=== PATIENT | female | born 1950 | race Caucasian/White ===

== ENCOUNTER 2020-03-20 07:59 | Day surgery (SDC) | payer OTHER ==
[~2020-03-20 07:59] MED LIST: Lactated Ringers 1,000 ML IV SCH; Sodium Chloride 0.9% 10 ML Syringe FLUSH PRN
[2020-03-20] MEDS ORDERED: Midazolam 1 MG/ML 2 ML SDV ONE ×2 (08:36→09:09)
[2020-03-20] MEDS ORDERED: Propofol 200 MG/20 ML SDV ONE ×3 (08:37→09:59)
--- NOTE | 2020-03-20 09:17 | PCM.PN ---
- General Info Date of Service: 03/20/20 - Review of Systems HEENT: Denies: Visual Changes Systems Review Comment:: 69-year-old female with family history of rectal cancer here for high risk screening colonoscopy. She is medically stable to proceed today. Her recent history and physical is reviewed and no significant changes are noted. I have discussed the proposed colonoscopy with the patient. Risks such as but not limited to bleeding and GI injury reviewed. She agrees to proceed. - Patient Data Vitals - Most Recent: Last Vital Signs Temp 97.4 F 03/20/20 08:43 Pulse 85 03/20/20 08:43 Resp 18 03/20/20 08:43 BP 137/78 03/20/20 08:43 Pulse Ox 94 L 03/20/20 08:43 Weight - Most Recent: 98.43 kg Med Orders - Current: Current Medications Lactated Ringer's (Ringers, Lactated) 1,000 mls @ 125 mls/hr IV ASDIRECTED CHANTE Last Admin: 03/20/20 08:42 Dose: 125 mls/hr Documented by: Sodium Chloride (Saline Flush) 10 ml FLUSH ASDIRECTED PRN PRN Reason: Keep Vein Open Discontinued Medications Midazolam HCl (Versed 1 Mg/Ml) Confirm Administered Dose 2 mg .ROUTE .STK-MED ONE Stop: 03/20/20 08:37 Propofol (Diprivan 20 Ml) Confirm Administered Dose 200 mg .ROUTE .STK-MED ONE Stop: 03/20/20 08:38 Sepsis Event Note - Focused Exam Vital Signs: Vital Signs Temp Pulse Resp BP Pulse Ox 03/20/20 08:43 97.4 F 85 18 137/78 94 L - Problem List Review Problem List Initiated/Reviewed/Updated: Yes - Assessment Assessment:: Family history of colon cancer - Plan Plan:: Colonoscopy
--- NOTE | 2020-03-20 09:56 | PCM.OPNOTE ---
- General Post-Op/Procedure Note Date of Surgery/Procedure: 03/20/20 Operative Procedure(s): Colonoscopy Findings: Extensive sigmoid diverticulosis Moderate sized external hemorrhoids Pre Op Diagnosis: Family history of colon cancer Post-Op Diagnosis: Sigmoid diverticulosis. Hemorrhoids Anesthesia Technique: MAC Primary Surgeon: Buck Fernández Pathology: none EBL in mLs: 0 Complications: None Condition: Good
--- NOTE | 2020-03-20 11:29 | OR ---
Date of Procedure: 03/20/2020 PREOPERATIVE DIAGNOSIS: Family history of colon cancer. POSTOPERATIVE DIAGNOSIS: Sigmoid diverticulosis and hemorrhoids. OPERATIONS PERFORMED: Colonoscopy. INDICATIONS FOR SURGERY: This 69-year-old female has a family history of colon cancer in her mother. She comes today for high-risk screening colonoscopy. FINDINGS: No polyps are seen on today's exam. The patient does have extensive sigmoid diverticulosis with multiple large diverticula and some angulation. The area does not appear to be acutely inflamed, or otherwise, complicated. The patient also has some moderate-sized external hemorrhoids, which also did not appear to be acutely inflamed. The remainder of the colon appears normal. DESCRIPTION OF PROCEDURE: The patient was taken to the operating room. She was given intravenous sedation and with her in the left lateral decubitus position, a digital rectal exam was performed showing no rectal masses. The Olympus colonoscope was inserted into the rectum. Retroflexed examination of the rectal canal was performed. The scope was then carefully advanced under direct visualization through the entire length of the colon until the cecum was reached. Cecal acquisition was confirmed by noting the normal internal cecal anatomy including the ileocecal valve. The light was also noted to transilluminate the abdominal wall in the right lower quadrant. There was some looping of the colon and hand pressure was required to assist in reaching the cecum, but it was able to be cannulated and reviewed. After examining the cecum, the scope was slowly withdrawn sequentially re-examining the colonic segments until the entire colon and rectum had been fully examined. The scope was removed and the patient was taken from the operating room in satisfactory condition. ESTIMATED BLOOD LOSS: Zero. COMPLICATIONS: None. PROGNOSIS: Good. ANNABELLA Fernández MD /[id number]
== END 2020-03-20 10:55 | disposition home or self-care (01) ==
LOC: LL.SDS 07:59
PROVIDERS: ATTEND Surgery
DX: Z12.11 Encounter for screening for malignant neoplasm of colon (principal); K57.30 Diverticulosis of large intestine without perforation or abscess without bleeding; K64.4 Residual hemorrhoidal skin tags; I10 Essential (primary) hypertension; E03.9 Hypothyroidism, unspecified; E78.5 Hyperlipidemia, unspecified; K58.9 Irritable bowel syndrome, unspecified; G62.9 Polyneuropathy, unspecified; G89.29 Other chronic pain; M79.605 Pain in left leg; F34.1 Dysthymic disorder; Z80.0 Family history of malignant neoplasm of digestive organs; Z79.899 Other long term (current) drug therapy
CPT/HCPCS: 45378; J2250; J2704; J7120

== ENCOUNTER 2020-06-26 10:48 | Day surgery (SDC) | payer OTHER ==
[2020-06-26] MEDS ORDERED: Propofol 200 MG/20 ML SDV ONE ×2 (11:59→12:02)
[2020-06-26] MEDS ORDERED: Midazolam 1 MG/ML 2 ML SDV ONE ×2 (11:59→12:02)
[2020-06-26] MEDS ORDERED: Ketamine 500 mg/10 ML MDV ONE ×2 (11:59→12:02)
[2020-06-26] MEDS ORDERED: Glycopyrrolate 0.2 MG/ML SDV ONE (12:02)
--- NOTE | 2020-06-26 12:06 | PCM.PN ---
- General Info Date of Service: 06/26/20 - Review of Systems Systems Review Comment:: 70-year-old female referred for EGD. She has a history of dysphagia with a choking sensation in her throat. Patient is medically stable to proceed today. Her recent history and physical is reviewed and no significant changes are noted. I have discussed the proposed upper endoscopy with the patient. She agrees to proceed excepting risks. - Patient Data Vitals - Most Recent: Last Vital Signs Temp 97.9 F 06/26/20 11:02 Pulse 82 06/26/20 11:02 Resp 18 06/26/20 11:02 BP 138/81 06/26/20 11:02 Pulse Ox 96 06/26/20 11:02 Weight - Most Recent: 99.337 kg Med Orders - Current: Current Medications Lactated Ringer's (Ringers, Lactated) 1,000 mls @ 125 mls/hr IV ASDIRECTED CHANTE Last Admin: 06/26/20 11:09 Dose: 125 mls/hr Documented by: Sodium Chloride (Saline Flush) 10 ml FLUSH ASDIRECTED PRN PRN Reason: Keep Vein Open Discontinued Medications Ketamine HCl (Ketalar) Confirm Administered Dose 500 mg .ROUTE .STK-MED ONE Stop: 06/26/20 12:00 Midazolam HCl (Versed 1 Mg/Ml) Confirm Administered Dose 2 mg .ROUTE .STK-MED ONE Stop: 06/26/20 12:00 Propofol (Diprivan 20 Ml) Confirm Administered Dose 200 mg .ROUTE .STK-MED ONE Stop: 06/26/20 12:00 Sepsis Event Note - Focused Exam Vital Signs: Vital Signs Temp Pulse Resp BP Pulse Ox 06/26/20 11:02 97.9 F 82 18 138/81 96 - Problem List Review Problem List Initiated/Reviewed/Updated: Yes - Assessment Assessment:: Dysphagia - Plan Plan:: EGD
--- NOTE | 2020-06-26 12:47 | PCM.OPNOTE ---
- General Post-Op/Procedure Note Date of Surgery/Procedure: 06/26/20 Operative Procedure(s): EGD with balloon esophageal dilation and biopsy Findings: Moderate esophageal stricture at GE junction Small hiatal hernia Mild inflammation in the antrum Pre Op Diagnosis: Dysphagia Post-Op Diagnosis: Esophageal stricture with hiatal hernia. Gastritis Anesthesia Technique: MAC Primary Surgeon: Buck Fernández Pathology: Biopsies of gastric antrum GE junction and esophagus EBL in mLs: 3 Complications: None Condition: Good
--- NOTE | 2020-06-26 13:43 | OR ---
Date of Procedure: 06/26/2020 PREOPERATIVE DIAGNOSIS: Dysphagia. POSTOPERATIVE DIAGNOSES: Distal esophageal stricture, hiatal hernia, and gastritis. OPERATION PERFORMED: Esophagogastroduodenoscopy with biopsy and balloon esophageal dilation. INDICATIONS FOR SURGERY: This 70-year-old female has noticed some difficulty with swallowing, even having to vomit up food boluses occasionally because they become lodged. FINDINGS: At the GE junction approximately 37 cm from the incisors, the patient has a moderate single esophageal stricture, this is a benign-appearing stricture without any evidence of extrinsic or intrinsic mass. The lining of the esophagus appears somewhat inflamed and possibly even has some slight whitish discoloration in this distal aspect. There is also a small hiatal hernia of approximately 2 cm in length. There is a mild degree of inflammation in the antrum near the pylorus with a mild degree of hyperemia. On examination of the patient's throat, I do not see any evidence of intrinsic or extrinsic mass, or any narrowing through the oropharynx. The cricopharyngeus distends normally, and I did not see any indication of a diverticulum. DESCRIPTION OF PROCEDURE: The patient was taken to the operating room. She was given intravenous sedation, and with her in the left lateral decubitus position, the Olympus gastroscope was advanced into the oral cavity through a mouth guard. Carefully under direct visualization, the scope was advanced through the oropharynx, through the cricopharyngeus, and into the esophagus. Examination did not show any visible abnormalities through this area either on insertion or withdrawal of the scope. The scope was then carefully advanced down through the esophagus, stomach, and into the duodenum, where examination to the third portion was performed. After examining the duodenum, which appeared normal, the scope was withdrawn back into the stomach where full examination including retroflexed examination of the fundus was performed. Biopsies of the antrum were taken to rule out H. pylori. The GE junction was carefully examined, and with the patient's symptoms and the moderate amount of narrowing seen, balloon dilation was performed. The 15/16.5/18 balloon was selected and the stricture was progressively dilated to the full 18 mm equivalent to approximately 54- [place]. There was moderate amount of mucosal disruption and improvement in the stricture with this procedure. Inspection of the dilated area did not show any evidence of esophageal injury other than the stricture dilation. Biopsies were then taken of the GE junction and also taken of the distal esophagus. The scope was then removed and the patient was awakened and taken from the operating room in satisfactory condition. ESTIMATED BLOOD LOSS: 3 mL. COMPLICATIONS: None. PROGNOSIS: Good. ANNABELLA Fernández MD /[id number]
== END 2020-06-26 14:02 | disposition home or self-care (01) ==
LOC: LL.SDS 10:48
PROVIDERS: ATTEND Surgery
DX: K22.2 Esophageal obstruction (principal); K44.9 Diaphragmatic hernia without obstruction or gangrene; K29.50 Unspecified chronic gastritis without bleeding; K31.89 Other diseases of stomach and duodenum; R23.4 Changes in skin texture; E03.9 Hypothyroidism, unspecified; K21.00 Gastro-esophageal reflux disease with esophagitis, without bleeding; E04.1 Nontoxic single thyroid nodule; I10 Essential (primary) hypertension; Z79.899 Other long term (current) drug therapy; Z79.890 Hormone replacement therapy; Z01.812 Encounter for preprocedural laboratory examination; Z20.828 Contact with and (suspected) exposure to other viral communicable diseases
CPT/HCPCS: 00731; C1726; J2250; J2704; J3490; J7120; U0002